=== PATIENT | male | born 1990 | race American Indian/Alaskan Native ===

== ENCOUNTER 2024-03-20 10:20 | Observation (INO) | payer OTHER ==
[~2024-03-20] VITALS: Ht 177.8 cm; Wt 64.9 kg
[2024-03-20 12:33] LABS: BASOPHILS ABSOLUTE AUTO 0.06 K/mm3 (0.00-0.23); BASOPHILS PERCENT AUTO 1 % (0-2); EOSINOPHILS ABSOLUTE AUTO 0.02 K/mm3 (0.00-0.68); EOSINOPHILS PERCENT AUTO 0 % (0-6); Hematocrit 46.2 % (37.0-53.0); Hemoglobin 16.1 g/dL (13.5-17.5); IMMATURE GRAN ABSOLUTE AUTO 0.01 K/mm3 (0.00-0.10); IMMATURE GRAN PERCENT AUTO 0 % (0-1); LYMPHOCYTES ABSOLUTE AUTO 1.57 K/mm3 (0.84-5.20); LYMPHOCYTES PERCENT AUTO 35 % (21-46); MONOCYTES ABSOLUTE AUTO 0.33 K/mm3 (0.16-1.47); MONOCYTES PERCENT AUTO 7 % (4-13); Mean Corpuscular HGB Conc 34.8 g/dL (31.5-36.5); Mean Corpuscular Volume 92 fL (80-100); Mean Platelet Volume 9.6 fL (9.1-12.4); NEUTROPHILS ABSOLUTE AUTO 2.46 K/mm3 (1.96-9.15); NEUTROPHILS PERCENT AUTO 55 % (41-73); Platelet Count 266 K/mm3 (150-400); RDW Coefficient Variation 12.3 % (11.7-14.2); RDW Standard Deviation 41.4 fL (35.1-46.3); Red Blood Cell Count 5.03 M/mm3 (4.30-5.90); White Blood Cell Count 4.45 K/mm3 (4.00-11.30)
[2024-03-20 12:44] LABS: Source, Urine Clean Catch
[2024-03-20 12:50] LABS: Appearance, Urine Clear (Clear); Bilirubin, Urine Neg (Neg); Blood, Urine Neg (Neg); Color, Urine Yellow (P-Yellow); Glucose Qualitative, Urine Neg (Neg); Ketones, Urine 1+ (Neg); Leukocyte Esterase, Urine Neg (Neg); Nitrite, Urine Neg (Neg); Protein, Urine Neg (Neg); Urobilinogen, Urine NORM (Normal); pH, Urine 6.5 (5.0-8.0)
[2024-03-20 13:14] LABS: U Amphetamine Screen Not Detected; U Barbituate Screen Not Detected; U Benzodiazapine Screen Not Detected; U Buprenorphine Screen Not Detected; U Cannabinoids Screen DETECTED; U Cocaine Screen Not Detected; U Methadone Screen Not Detected; U Methamphetamine Screen Not Detected; U Opiates Screen Not Detected; U Oxycodone Screen Not Detected; U Phencyclidine Screen Not Detected
[2024-03-20 13:27] LABS: Ethanol (Alcohol), Blood, Med <3 mg/dL; Salicylate <1.7 mg/dL (2.8-20.0)
[2024-03-20 13:45] LABS: Acetaminophen, Random <2.0 ug/mL (10.0-30.0); Alanine Aminotransfer (ALT/SGP 26 U/L (12-78); Albumin, Blood 4.4 g/dL (3.4-5.0); Albumin/Globulin Ratio 1.2 (0.8-1.8); Alk Phos 67 U/L (50-136); Anion Gap 10 mmol/L (3-11); Aspartate Aminotrans (AST/SGOT 28 U/L (12-37); Bilirubin, Total 0.8 mg/dL (0.1-1.0); Blood Urea Nitrogen 6 mg/dL (8-24); Bun/Creatinine Ratio 9.8 (12.0-20.0); CO2, Blood 26 mmol/L (21-32); Calcium, Blood 9.4 mg/dL (8.5-10.1); Chloride, Blood 108 mmol/L (98-108); Creatinine, Blood 0.61 mg/dL (0.60-1.20); Globulin, Blood 3.6 g/dL (2.2-4.0); Glomerular Filtration Rate 130 (60-); Glucose, Blood 102 mg/dL (70-99); Sodium, Blood 140 mmol/L (136-145)
[2024-03-20] MEDS ORDERED: TraZODone HCl 50 MG Tab PO ONE (20:00)
== END 2024-03-21 15:34 | disposition other institution (70) ==
LOC: ER 10:20 → EOR 10:21
PROVIDERS: Physician Assistant; ADMIT Student in an Organized Health Care Education/Training Program
DX: F31.9 Bipolar disorder, unspecified (principal); R45.851 Suicidal ideations; F60.3 Borderline personality disorder
CPT/HCPCS: 80053; 80320; 81003; 84443; 85025; 86592; 93005; 93010; 99285-25; A9270; G0378; G0480

== ENCOUNTER 2024-03-21 10:26 | Inpatient (IN) | payer OTHER ==
[~2024-03-21] VITALS: Wt 67.4 kg
[2024-03-21] MEDS ORDERED: Acetaminophen 325 MG TABLET PO PRN (13:50)
[2024-03-21] MEDS ORDERED: FLU VACC TS2024-25(6MOS UP)/PF 45 MCG/0.5 ML SYRINGE IM SCH (13:50)
[2024-03-21] MEDS ORDERED: Aluminum Hydroxide 320MG/5ML 473 ML PO PRN (13:50)
[2024-03-21] MEDS ORDERED: DiphenhydrAMINE HCl 50 MG/ML 1ML Vial IM PRN (13:50)
[2024-03-21] MEDS ORDERED: LORazepam 2 MG/ML 1ML Injection IM PRN (13:50)
[2024-03-21] MEDS ORDERED: DiphenhydrAMINE HCl 50 MG Cap PO PRN (13:50)
[2024-03-21] MEDS ORDERED: Haloperidol 5 MG Tab PO PRN (13:55)
[2024-03-21] MEDS ORDERED: LORazepam 2 MG Tab PO PRN (13:55)
[2024-03-21] MEDS ORDERED: Haloperidol Lactate Inj. 5 MG/ML Injection IM PRN (13:55)
[2024-03-21] MEDS ORDERED: Ibuprofen 600 MG Tab PO PRN (13:55)
[2024-03-21] MEDS ORDERED: Nicotine Polacrilex 2 MG Gum PO PRN (18:00)
--- NOTE | 2024-03-21 18:10 | NUR ---
SHIFT SUMMARY/ADMISSION NOTE PT AxOx4. ARRIVED TO [facility] FOR VOLUNTARY ADMISSION FROM [facility] ED AT APPROX 1400. PT IS COOPERATIVE WITH CARE BUT REPORTS ANXIETY WITH RESTLESS AND FIDGETY BEHAVIOR. ANTI ANXIETY MEDICATION ADMINISTERED TO PT WITH REPORTED RELIEF. PT COMPLIANT WITH ADMISSION QUESTIONS AND OPENLY EXPRESSES SITUATION THAT BROUGHT HIM IN THE THE ED. PT ENDORSES SI, BUT DENIES INTENT OR PLAN HERE. PT REPORTS THREATENING AUDITORY HALLUCINATIONS, BUT STATES THEY ARE ONLY THREATENING TOWARDS HIMSELF. PT ALSO REPORTS POSITIVE VISUAL HALLUCINATIONS "JUST SHADOWS," AND DENIES TACTILE HALLUCINATIONS AND DELUSIONS. PT DENIES HI. PT'S ADMISSION COMPLETE AND PT WAS ORIENTED TO THE UNIT. HE IS CURRENTLY MINGLING WITH PEERS/STAFF ON THE UNIT. HE IS SMILING AND CHATTING WHILE STANDING IN THE HALLS. PT ATE FULL DINNER, THEN REQUESTED MORE. DOUBLE PORTIONS ORDERED. PT DENIES ANY NEEDS AT THIS TIME.
[2024-03-21 20:02] VITALS: BP 123/80
[2024-03-21] MEDS ORDERED: OLANZapine 10 MG Tab PO SCH (21:00)
--- NOTE | 2024-03-22 05:59 | NUR ---
Patient spent the evening coloring and socializing with peers. He was cooperative with assessment. He took his medication without issue but commented I don t know why they are trying to get rid of God s voice now when it s kept me safe for so long. . He denied new concerns at this time but endorsed continuing AH and VH. He is able to make his needs known. Plan of care ongoing. He appeared to sleep for 9 hours.
[2024-03-22 08:07] VITALS: BP 136/85
[2024-03-22] MEDS ORDERED: Multivitamins 1 Tab PO SCH (09:00)
--- NOTE | 2024-03-22 17:19 | NUR ---
SHIFT SUMMARY PT AxOx4. PLEASANT AND COOPERATIVE WITH CARE. PT REPORTS MINIMAL SI THOUGHT THIS AM, DENIES INTENT/PLAN. HE ALSO ENDORSED AUDIO AND VISUAL HALLUCINATIONS, BUT REPORTS THEM TO BE QUIETER THIS AM. PT ALSO REPORTS MILD ANXIETY, BUT DECLINED NEED FOR PHARMACEUTICAL INTERVENTION. PT HAS BEEN FOLLOWING CARE PLAN INCLUDING TAKING MEDICATIONS PRESCRIBED, ATTENDING GROUPS AND MINGLING ON THE UNIT WITH PEERS/STAFF. PT DENIES ANY NEEDS AT THIS TIME, CURRENLTY SITTING IN [place] EATING DINNER WITH OTHERS.
[2024-03-22 20:33] VITALS: BP 139/98
--- NOTE | 2024-03-23 05:25 | NUR ---
Patient spent most of the evening watching TV and socializing with peers. He was cooperative with assessment. He took his medication without issue. He denied new concerns at this time but continued to endorse AH and VH. He is able to make needs known. Plan of care ongoing. He appeared to be sleeping for 8 hours.
[2024-03-23 08:22] VITALS: BP 147/90
[2024-03-23] MEDS ORDERED: HydrOXYzine Pamoate 25 MG Cap PO SCH (12:00)
[2024-03-23] MEDS ORDERED: HydrOXYzine Pamoate 25 MG Cap PO PRN (15:30)
--- NOTE | 2024-03-23 17:09 | NUR ---
SHIFT SUMMARY PT AA&O TO PERSON PLACE AND SITUATION. PT ANXIOUS THIS MORNING REPORTING POOR SLEEP WITH NIGHTMARES. STATES HAT HE FEELS HE IS TRAVELING INTO HIS FAMILY MEMBERS DREAMS AND THEY ARE "NOT GOOD" MD NOTIFIED AND HYDROXIZINE ORDER RECIEVED. PT REPORTS THIS HELPED HIM "CALM DOWN" AND DENIES CURRENT ANXIETY. HE DENIES SI. ENDORSED AH BUT AT A MINIMUM. HE HAS BEEN UP FOR SHOWER, GROUPS, AND MEALS. HE IS SOCIALIZING WITH KARIE. HE IS COMPLIANT WITH MEDICATIONS AND DENIES ANY ADVERSE SIDE EFFECTS. HE DENIES ANY CURRENT NEEDS OR CONCERNS. WILL CONTINUE POC
[2024-03-23 19:33] VITALS: BP 131/83
[2024-03-23] MEDS ORDERED: Gabapentin 300 MG Cap PO SCH (21:00)
[2024-03-23] MEDS ORDERED: OLANZapine 10 MG Tab PO SCH (21:00)
--- NOTE | 2024-03-24 05:02 | NUR ---
ALEXY IN DAY ROOM COMPLETING A PUZZLE AT START OF SHIFT. APPEARS WELL-GROOMED, CALM, COOPERATIVE. DURING ASSESSMENT PT DENIED SI/VTH AND ENDORSED AH-STATING HE HEARS THE VOICE OF GOD. PT ALSO ENDORSED PAIN 6/10 DUE TO HEADACHE. PT TOOK HS MEDS ORDERED ALONG WITH PRN IBUPROFEN. DENIED ALL OTHER CONCERNS. PT APPEARED TO SLEEP MOST OF SHIFT. SAFETY MEASURES MAINTAINED VIA Q15 MINUTE CHECKS.
[2024-03-24 08:12] VITALS: BP 135/84
--- NOTE | 2024-03-24 17:25 | NUR ---
SHIFT SUMMARY PT A/O X4; PLEASANT AND COOPERATIVE WITH CARE. PT DENIES SI, HI, OR ANY HALLUCINATIONS. HOWEVER, PT DOES SAY THAT HE HEARS "THE VOICE OF GOD" AND "NOTHING CAN STOP THE VOICE OF GOD". HE SAYS THAT HE HAD LOUD VOICES IN HIS DREAMS LAST NIGHT AND HE HAD A HARD TIME SLEEPING, BUT THESE ARE NOT AUDITORY HALLUCINATIONS. PT SAYS THAT HE OFTEN HAS CYCLICAL MOODS BUT HIS MOOD IS "GOOD" THIS SHIFT. HE HAS BEEN PARTICIPATING IN [employer] ACTIVITIES AND IS COMPLIANT WITH MEDICATIONS.
[2024-03-24 20:25] VITALS: BP 153/100
[2024-03-24 20:33] VITALS: BP 153/100
--- NOTE | 2024-03-24 23:11 | NUR ---
ALEXY IN DAY ROOM WATCHING TELEVISION WITH PEERS AND STAFF AT START OF SHIFT. APPEARS WELL-GROOMED, CALM, COOPERATIVE. PT ENDORSED HEARING THE VOICE OF GOD. DENIED VISUAL, TACTICAL HALLUCINATIONS. PT DID MAKE A STATEMENT THAT SINCE HE WAS GETTING HIS ANXIETY/AGITATION UNDER CONTROL HE WAS ABLE TO PUT THE OTHER VOICES TO THE SIDE. PT DECLINED TO STATE WHAT THOSE VOICES WERE SAYING. PT TOOK HS MEDS ORDERED. DENIED ALL OTHER CONCERNS. PT IS CURRENTLY IN BED RESTING, CHEST RISING IN NAD. SAFETY MEASURES MAINTAINED VIA Q15 MINUTE CHECKS.
--- NOTE | 2024-03-25 04:19 | NUR ---
ASSUMED CARE FROM PRIOR NURSE. PATIENT CONTINUES TO SLEEP THROUUGH THE NIGHT. NO NOTED BEHAVIORS OR ISSUES.
[2024-03-25] MEDS ORDERED: Nicotine 21 MG PATCH TOP SCH (09:00)
--- NOTE | 2024-03-25 17:45 | NUR ---
SHIFT SUMMARY PT A/O X4; PLEASANT AND COOPERATIVE WITH CARE. HE DENIES SI AND HI BUT REPORTS SOME AUDITORY HALLUCINATIONS. HE HEARS "THE VOICE OF GOD", BUT IT IS NOT BOTHERSOME. REPORTS HE HAD VOICES THAT TOLD HIM TO SELF HARM IN THE PAST BUT SAYS THAT THOSE VOICES HAVE NOT BEEN PRESENT. PT REPORTED A GREATER SENSE OF CONTROL TODAY. HE DENIES ANY VISUAL OR TACTILE HALLUCINATIONS. HE ACTIVELY PARTICIPATES IN [employer] ACTIVITIES AND IS MONITORED VIA Q15 CHECKS. NO NEW NEEDS AT THIS TIME.
[2024-03-25 19:39] VITALS: BP 140/90
[2024-03-25 19:56] VITALS: BP 134/88
--- NOTE | 2024-03-26 05:28 | NUR ---
Patient spent most of the evening watching TV with peers. They were cooperative with assessment. They took their HS medication without issue. They endorsed continuing auditory hallucinations but denied other symptoms at this time. They are able to make their needs known. Plan of care ongoing. They appeared to be sleeping for 8 hours.
[2024-03-26 08:11] VITALS: BP 137/85
--- NOTE | 2024-03-26 17:19 | NUR ---
SHIFT SUMMARY Pt is A&O, calm, cooperative, eye contact is appropriate. Pt describes his mood as, "neutral, just waiting for the cycling," affect is full and euthymic. Pt denies SI, HI, VH, and TH. When asked about AH, he replied, "the normal one," refering to hearing his normal voice. Pt denies depression, anxiety, and current pain. During the assessment, pt was seated and continually bouncing his legs. Remote Mortgage Underwriter asked if this was anxiety and replied that it was his ADHD and not anxiety and that he needs to "be doing something." Pt was active on this unit today, participating in groups and pleasantly interacting with peers and staff. Will continue to monitor for safety and wellness.
--- NOTE | 2024-03-27 05:58 | NUR ---
Patient spent most of the night watching TV. They were cooperative with assessment. They took their mediation without issue. They endorsed one continuing voice (AH) but explained that it was the good voice that helps to keep them safe. They denied new concerns at this time. They are able to make their needs known. Plan of care ongoing They appeared to be sleeping in their room for 9 hours throughout the night.
[2024-03-27 07:59] VITALS: BP 130/83
[2024-03-27] MEDS ORDERED: NICO21TP TOP (11:11)
[2024-03-27] MEDS ORDERED: GABA300 PO (11:11)
[2024-03-27] MEDS ORDERED: OLAN20 MM (11:12)
--- NOTE | 2024-03-27 14:12 | NUR ---
DISCHARGE NOTE PT A/O X4; PLEASANT AND COOPERATIVE WITH CARE. PT DENIES SI, HI, AND ANY VISUAL OR TACTILE HALLUCINATIONS. HE HAS SOME AUDITORY HALLUCINATIONS BUT THEY ARE POSITIVE. PT TO FOLLOW UP WITH THE ACT TEAM AT [facility] AND IS MEETING THEM TODAY. MEDICATIONS FAXED TO [facility] PER PATIENT'S REQUEST. PT WANTS TO POSSIBLY GO TO [facility] FOR BEHAVIORAL HEALTH IN THE FUTURE SINCE HE IS ABLE TO ACCESS RESOURCES VIA [facility]. [facility] UNABLE TO SCHEDULE PT WITHOUT BEING ESTABLISHED. [facility] ALSO UNABLE TO SCHEDULE FOR PSYCHIATRY UNTIL 05/05/24. PT GIVEN A NEW PATIENT PACKET FOR [facility] SO HE CAN BECOME ESTABLISHED WITH THEM IN THE FUTURE IF HE WISHES. CLOTHES AND BELONGINGS RETURNED TO PT AND VAPE RETURNED FROM [facility]. PT LEFT VIA [facility]AX[facility].
== END 2024-03-27 14:12 | disposition home or self-care (01) | DRG 885 ==
LOC: BHU 10:26
PROVIDERS: ADMIT Student in an Organized Health Care Education/Training Program
DX: F31.2 Bipolar disorder, current episode manic severe with psychotic features (principal); Z59.00 Homelessness unspecified; R45.851 Suicidal ideations; F10.20 Alcohol dependence, uncomplicated; Z79.899 Other long term (current) drug therapy
CPT/HCPCS: A9270; Q0177

== ENCOUNTER 2024-05-12 10:49 | Emergency (ER) | payer OTHER ==
[~2024-05-12] VITALS: Ht 177.8 cm; Wt 68.0 kg
[~2024-05-12 10:49] MED LIST: GABA300 PO; NICO21TP TOP; OLAN20 MM
[2024-05-12] MEDS ORDERED: Diazepam 5 MG Tab PO ONE ×2 (11:25→13:40)
[2024-05-12 11:30] LABS: BASOPHILS ABSOLUTE AUTO 0.05 K/mm3 (0.00-0.23); BASOPHILS PERCENT AUTO 1 % (0-2); EOSINOPHILS ABSOLUTE AUTO 0.02 K/mm3 (0.00-0.68); EOSINOPHILS PERCENT AUTO 0 % (0-6); Hematocrit 43.5 % (37.0-53.0); Hemoglobin 15.5 g/dL (13.5-17.5); IMMATURE GRAN PERCENT AUTO 0 % (0-1); LYMPHOCYTES ABSOLUTE AUTO 2.06 K/mm3 (0.84-5.20); LYMPHOCYTES PERCENT AUTO 41 % (21-46); MONOCYTES ABSOLUTE AUTO 0.51 K/mm3 (0.16-1.47); MONOCYTES PERCENT AUTO 10 % (4-13); Mean Corpuscular HGB 32.4 pg (26.0-34.0); Mean Corpuscular HGB Conc 35.6 g/dL (31.5-36.5); Mean Corpuscular Volume 91 fL (80-100); Mean Platelet Volume 9.1 fL (9.1-12.4); NEUTROPHILS ABSOLUTE AUTO 2.43 K/mm3 (1.96-9.15); NEUTROPHILS PERCENT AUTO 48 % (41-73); Platelet Count 259 K/mm3 (150-400); RDW Standard Deviation 40.4 fL (35.1-46.3); Red Blood Cell Count 4.78 M/mm3 (4.30-5.90); White Blood Cell Count 5.07 K/mm3 (4.00-11.30)
[2024-05-12 11:44] LABS: Acetaminophen, Random <2.0 ug/mL (10.0-30.0); Alanine Aminotransfer (ALT/SGP 45 U/L (12-78); Albumin, Blood 4.4 g/dL (3.4-5.0); Albumin/Globulin Ratio 1.3 (0.8-1.8); Alk Phos 67 U/L (50-136); Anion Gap 9 mmol/L (3-11); Aspartate Aminotrans (AST/SGOT 27 U/L (12-37); Bilirubin, Total 0.7 mg/dL (0.1-1.0); Blood Urea Nitrogen 6 mg/dL (8-24); Bun/Creatinine Ratio 8.9 (12.0-20.0); CO2, Blood 28 mmol/L (21-32); Calcium, Blood 9.3 mg/dL (8.5-10.1); Chloride, Blood 110 mmol/L (98-108); Creatinine, Blood 0.67 mg/dL (0.60-1.20); Ethanol (Alcohol), Blood, Med <3 mg/dL; Globulin, Blood 3.4 g/dL (2.2-4.0); Glomerular Filtration Rate 126 (60-); Glucose, Blood 110 mg/dL (70-99); Potassium, Blood 3.7 mmol/L (3.5-5.5); Salicylate 1.7 mg/dL (2.8-20.0); Sodium, Blood 143 mmol/L (136-145); Total Protein, Blood 7.8 g/dL (6.4-8.2)
[2024-05-12 13:12] LABS: U Amphetamine Screen Not Detected; U Barbituate Screen Not Detected; U Benzodiazapine Screen Not Detected; U Buprenorphine Screen Not Detected; U Cannabinoids Screen Not Detected; U Cocaine Screen Not Detected; U Methadone Screen Not Detected; U Methamphetamine Screen Not Detected; U Opiates Screen Not Detected; U Oxycodone Screen Not Detected; U Phencyclidine Screen Not Detected
[2024-05-12] MEDS ORDERED: Ibuprofen 600 MG Tab PO ONE (13:25)
[2024-05-12] MEDS ORDERED: OLANZapine 10 MG Tab PO SCH (21:00)
== END 2024-05-12 21:00 | disposition other institution (70) ==
LOC: ER 10:49 → BHU 16:24 → ER 16:24
PROVIDERS: Emergency Medicine
DX: F31.9 Bipolar disorder, unspecified (principal); F10.90 Alcohol use, unspecified, uncomplicated; Z79.899 Other long term (current) drug therapy
CPT/HCPCS: 36415; 80053; 80320; 85025; 93005; 93010; 99285-25; A9270; G0480

== ENCOUNTER 2024-05-12 16:24 | Inpatient (IN) | payer OTHER ==
[2024-05-12] MEDS ORDERED: Polyethylene Glycol 3350 17 gm PO PRN (18:40)
[2024-05-12] MEDS ORDERED: DiphenhydrAMINE HCl 50 MG Cap PO PRN (18:40)
[2024-05-12] MEDS ORDERED: Ondansetron 4 MG SoluTab MM PRN (18:40)
[2024-05-12] MEDS ORDERED: Haloperidol Lactate Inj. 5 MG/ML Injection IM PRN (18:40)
[2024-05-12] MEDS ORDERED: TraZODone HCl 50 MG Tab PO PRN (18:40)
[2024-05-12] MEDS ORDERED: FLU VACC TS2024-25(6MOS UP)/PF 45 MCG/0.5 ML SYRINGE IM ONE (18:40)
[2024-05-12] MEDS ORDERED: DiphenhydrAMINE HCl 50 MG/ML 1ML Vial IV PRN (18:40)
[2024-05-12] MEDS ORDERED: Aluminum Hydroxide 320MG/5ML 473 ML PO PRN (18:45)
[2024-05-12] MEDS ORDERED: Acetaminophen 325 MG TABLET PO PRN (18:45)
[2024-05-12] MEDS ORDERED: LORazepam 2 MG Tab PO PRN (18:45)
[2024-05-12] MEDS ORDERED: LORazepam 2 MG/ML 1ML Injection IM PRN ×2 (18:45→18:50)
[2024-05-12] MEDS ORDERED: Ibuprofen 600 MG Tab PO PRN (18:45)
[2024-05-12] MEDS ORDERED: OLANZapine ODT 10 MG Tab MM PRN (18:45)
[2024-05-12] MEDS ORDERED: Calcium Carbonate 500 MG Tab Chew PO PRN (18:45)
[2024-05-12] MEDS ORDERED: Haloperidol 5 MG Tab PO PRN (18:50)
[2024-05-12] MEDS ORDERED: HydrOXYzine Pamoate 50 MG Cap PO PRN (18:50)
[2024-05-12] MEDS ORDERED: Melatonin 3 MG Tab PO PRN (18:50)
[2024-05-12] MEDS ORDERED: OLANZapine 10 MG Tab PO SCH (21:00)
[2024-05-12] MEDS ORDERED: ChlordiazePOXIDE 25 MG Cap PO SCH (22:00)
[2024-05-12] MEDS ORDERED: Nicotine Polacrilex 2 MG Gum PO PRN (23:40)
[2024-05-12] MEDS ORDERED: DiphenhydrAMINE HCl 50 MG/ML 1ML Vial IM PRN (23:45)
--- NOTE | 2024-05-13 05:03 | NUR ---
ADMISSION SUMMARY 05/12/24 @2115 Pt presents to [facility] from ED after medical clearance from possible etoh withdrawal. Significant hx of etoh abuse, with periods of sobriety. Recent relapse (approx 2d prior to arrival), but pt denies multiple days of recent drinking. BAL of 0. Notable fidgeting, bouncing leg fast while seated. Endorses baseline high anxiety, but denies presence of withdrawal symptoms. Assessed to be a reliable source given his long hx of alcohol abuse. Confirms daily suicidal ideation, but is more interested in residential tx program (no current availability in [place], where his sun'aq and family reside). Earlier this year, pt completed detox in [place], but could not maintain sobriety without the Ativan he'd received. Pt hopes to find a compatible therapist after intensive tx so he is able to function as a "productive member of society" (pt reports his best mental health was at times he achieved this, without the use of medication, but also acknowledges that he can be productive during episodes of lorrie). Previous stay on current [facility] in Mar 2024. Did continue the prescribed gabapentin and Zyprexa temporarily, but had issues with [facility] (as well as similar conflicts with clinics and providers), so has not continued the meds and does not have a current OP provider or PCP. 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 No active plan, but hx of numerous attempts/plans (e.g. suicide by picture copyist, overdose). Reports that his behavior while drinking has destroyed all of his relationships with family and friends. Has kids (16yo and 1yo) with 2 women, but is not permitted to see either. A no-contact order was issued with his oldest/+mother in exchange for ending child support payments (he was unable to afford these, so was living in his car in [place] for 2 years). Mother of his 1yo child had an affair with his brother to retaliate for pt's own infidelity during their relationship. Pt believes that his drinking has contributed to all of his life stressors, but does provide Bipolar dx while sharing pieces of his hx leading up to admit. Tangential. Avoids eye contact but finds talking to be therapeutic. Pt signed admission forms for voluntary hospitalization and was cooperative with skin check (no wounds or contraband found). Belongings inventoried by A with pt present. Hopes to be stable enough for DC prior to an SSDI meeting on 05/25/24. He will discuss tx options and anticipated LOS with tx team. Introduced pt to roommate. He ate a snack and took HS Zyprexa as scheduled. Held librium d/t discontinuation of CIWA protocol. Next shift aware to discuss DC of librium and ativan orders (with CIWA parameters). Pt was observed to be sleeping during overnight rounds. No issues since arrival.
[2024-05-13 08:01] VITALS: BP 136/77
[2024-05-13] MEDS ORDERED: Multivitamins 1 Tab PO SCH (09:00)
--- NOTE | 2024-05-13 12:51 | NUR ---
VERBAL ORDER FROM PROVIDER TO D/C CIWA AND Q4HRWA LIBRIUM, ADDED ORDER FOR LIBRIUM 50MG PO BID
--- NOTE | 2024-05-13 17:25 | NUR ---
SHIFT SUMMARY PT HAS HAD A DECENT DAY, UP FOR MEALS, STRAIGHT BACK TO BED AFTER BKFT. WOKE FOR LUNCH, REFUSED MULTI VITAMIN. STS HE FEELS ANXIOUS 8/10 WITH UPPER R SIDE DENTAL PAIN. A DENTAL HYGENIST CONSULT IS IN FOR A VISIT TOMORROW FOR EVALUATION. PT DENIES FEELING IF HE IS DETOXING. HE DENIES HI/SI/VAH AT THIS TIME. PROVIDER D/C CIWA PROTOCOL TODAY BUT WILL DOSE LIBRIUM 50mg BID. PT IS UP FOR DINNER, HAS BEEN COOPERATIVE ALL DAY WITH STAFF AND OTHER PATIENTS, PARTICIPATED IN THE [facility] THIS AFTERNOON.
--- NOTE | 2024-05-13 17:45 | NUR ---
SHIFT SUMMARY UPDATE PT HAS BEEN MEDICATED AT THIS TIME FOR 8 ANXIETY PER PT REQUEST
[2024-05-13] MEDS ORDERED: OLANZapine 10 MG Tab PO SCH (21:00)
[2024-05-13] MEDS ORDERED: ChlordiazePOXIDE 25 MG Cap PO SCH (21:00)
[2024-05-13 21:09] VITALS: BP 126/80
--- NOTE | 2024-05-14 04:10 | NUR ---
SHIFT SUMMARY Community meeting goal accomplished ("to get sleep"). Pt reports sleeping throughout the day, but says he needed the rest. Visibly less anxious than last night at arrival. Progress/goals TBD. Ongoing tooth pain (PRN Tylenol minimally effective). Received report that dental consult has been ordered. Observed to be sleeping overnight without issue after receiving HS meds (librium, zyprexa). No active CIWA protocol--no s/s of withdrawal noted since admit.
[2024-05-14 08:16] VITALS: BP 136/92
[2024-05-14] MEDS ORDERED: ARIPiprazole 10 MG Tab PO SCH (09:00)
--- NOTE | 2024-05-14 17:22 | NUR ---
SHIFT SUMMARY PT A/O X4; PLEASANT AND COOPERATIVE WITH CARE. HE DENIES SI, HI, OR ANY HALLUCINATIONS. PT DID COMPLAIN OF SOME ANXIETY AND TOOTH PAIN, HE WAS MEDICATED PER EMR WITH GOOD EFFECT. PT ATTENDED MEALS THIS SHIFT BUT DID NOT ATTEND GROUP. PT SLEPT THE MAJORITY OF THE SHIFT. HE IS TO POSSIBLY DISCHARGE BACK HOME TOMORROW AND HAS FOLLOW UP APPOINTMENTS SET UP. MONITORED VIA Q15 ROUNDING FOR SAFETY.
[2024-05-14 20:45] VITALS: BP 130/88
--- NOTE | 2024-05-15 05:39 | NUR ---
SHIFT SUMMARY Pt A&O, calm, cooperative, eye contact is good. Pt stated that his mood was "mellow;" affect is euthymic and full. Pt denies SI, HI, and hallucinations. He c/o tooth pain, but did not ask for any PRNs. Pt took his HS meds with issues. He was active on the milieu during the evening, watchint TV with peers and pleasantly interacting with staff. Staff continues to monitor for safety and wellness.
[2024-05-15 08:13] VITALS: BP 134/87
[2024-05-15] MEDS ORDERED: ARIPiprazole 10 MG Tab PO SCH (09:00)
[2024-05-15] MEDS ORDERED: MELA3 PO (11:31)
[2024-05-15] MEDS ORDERED: ABILIFY MYCITE20 M2 PO (11:31)
[2024-05-15] MEDS ORDERED: ONE DAILY MUL400 MCG PO (11:32)
--- NOTE | 2024-05-15 15:06 | NUR ---
DISCHARGE NOTE PT A/O X4; PLEASANT AND COOPERATIVE WITH CARE. HE DENIES SI, HI, OR ANY HALLUCINATIONS. HE IS TO DISCHARGE HOME TODAY AND HAS FOLLOW UP APPOINTMENTS SCHEDULED. PT'S BELONGINGS RETURNED TO HIM AND DISCHARGE PAPERWORK GONE OVER WITH HIM WELL. PT VERBALIZED UNDERSTANDING. MEDICATIONS FAXED TO [facility]. FRIEND PICKED HIM UP AND PT TO COME TO SECURITY TO OBTAIN OTHER BELONGINGS.
== END 2024-05-15 15:08 | disposition home or self-care (01) | DRG 885 ==
LOC: BHU 16:24
PROVIDERS: ADMIT Student in an Organized Health Care Education/Training Program
DX: F31.77 Bipolar disorder, in partial remission, most recent episode mixed (principal); F10.20 Alcohol dependence, uncomplicated; Z79.899 Other long term (current) drug therapy; Z91.148 Patient's other noncompliance with medication regimen for other reason
CPT/HCPCS: A9270